=== PATIENT | male | born 2000 | race Caucasian/White ===

== ENCOUNTER 2018-12-04 15:31 | Emergency (ER) | payer MEDICAID ==
[~2018-12-04] VITALS: Ht 167.6 cm; Wt 58.1 kg
[2018-12-04 15:35] VITALS: BP 119/62; PULSE 95; RESP 20; Ht 167.6 cm; Wt 58.1 kg
--- NOTE | 2018-12-04 16:12 | ERD ---
ER Documentation Chief Complaint Chief Complaint Lac on right side of nose after he was accidentally elbowed in soccer game HPI 18-year-old male presents with complaint of laceration to his nose after getting elbowed at a soccer game. He states that happened 30 minutes ago. States he is up-to-date on his tetanus. Patient denies any headaches, dizziness, syncope, amnesia, LOC, difficulty breathing out of his nose., Nosebleeding. ROS All systems reviewed and are negative except as per history of present illness. PMhx/Soc Medical and Surgical Hx: pt denies Medical Hx, pt denies Surgical Hx FmHx Family History: No diabetes, No coronary disease, No other Physical Exam Vitals Vital Signs Date Temp Pulse Resp B/P (MAP) Pulse Ox O2 O2 Flow FiO2 Time Delivery Rate 12/04/18 99.1 95 20 119/62 100 15:35 (81) Physical Exam Const: No acute distress Head: Atraumatic Eyes: Normal Conjunctiva ENT: Normal External Ears, Nose and Mouth. Neck: Full range of motion. No meningismus. Resp: Clear to auscultation bilaterally Cardio: Regular rate and rhythm, no murmurs Abd: Soft, non tender, non distended. Normal bowel sounds Skin: Approximately 1 cm partial-thickness lateral laceration noted to the left nasal area. There is no underlying bony deformity noted. The nose is symmetrical without any obvious signs of fracture. There is no edema, erythema, or tenderness palpation. There are no foreign bodies noted. There is no septal hematoma noted. The bleeding is controlled and there is no active bleeding. There is no bleeding from the nares. Back: No midline or flank tenderness Ext: No cyanosis, or edema Neur: Awake and alert Psych: Normal Mood and Affect Procedures/MDM Laceration Repair by me: Anesthesia: Location: Right lateral aspect of bridge of nose Tendon/Joint/Nerves: No injury Foreign body: None detected after copious irrigation and exploration Technique: Dermabond Complexity: No subcutaneous sutures/mucosal repair/edge excision Post Closure Length: 1 cm Patient's bleeding was easily controlled in the department and there is no indication of anemia. No evidence of compartment syndrome, neurologic injury, vascular injury, open j oint, tendon laceration, or foreign body. Fortuitously, Dr. Elias was on site and he stated that given the nature of patient's injury there were he would not need x-rays or CT scan. There is very little concern for fracture. He stated patient would not need prophylactic antibiotics either. I agree with his assessment. Patient's laceration was repaired using above technique. Wound was irrigated and cleansed with Betadine. Patient is appropriate for outpatient follow up. 48 hour wound check. Scar minimization instructions given. At this time, patient is stable for discharge and outpatient management. I have instructed the patient to follow-up with his/her primary care physician in 1-2 days. I have discussed with the patient the possibility of needing to see a specialist for further workup and imaging studies if symptoms persist. I have instructed the patient to promptly return to the ER for any new or worsening symptoms including but not limited to increased pain, fever, nausea, vomiting, weakness or LOC. The patient and/or family expressed understanding of and agreement with this plan. All questions were answered. Home care instructions were provided. Communication with patient both during the exam and instructions for discharge were performed with using a narrow gauge brakeman . Patient gave verbal confirmation to the practitioner, through the narrow gauge brakeman, that they understood everythign that was being said to them. DISCLAIMER: Inadvertent spelling and grammatical errors are likely due to EHR/dictation software use and do not reflect on the overall quality of patient care. Also, please note that the electronic time recorded on this note does not necessarily reflect the actual time of the patient encounter. Departure Diagnosis: Primary Impression: Laceration Condition: Stable JANE DENNISON Dec 04, 2018 16:12
== END 2018-12-04 16:38 | disposition home or self-care (01) ==
LOC: FTE 15:31
DX: S01.21XA Laceration without foreign body of nose, initial encounter (principal); X58.XXXA Exposure to other specified factors, initial encounter; Y92.322 Soccer field as the place of occurrence of the external cause
CPT/HCPCS: 12011; Z7502

== ENCOUNTER 2018-12-06 10:52 | Emergency (ER) | payer MEDICAID ==
[~2018-12-06] VITALS: Wt 58.0 kg
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
[2018-12-06 11:52] VITALS: BP 128/77; PULSE 78; RESP 18
== END 2018-12-06 12:02 | disposition home or self-care (01) ==
LOC: E/R 10:52
DX: Z48.01 Encounter for change or removal of surgical wound dressing (principal)
CPT/HCPCS: 99281